=== PATIENT | female | born 1970 | race Caucasian/White ===

== ENCOUNTER 2024-05-12 11:50 | Inpatient (IN) | payer OTHER ==
[2024-05-12] MEDS ORDERED: ACETAMINOPHEN INJECTION 100 ML ONE (13:18)
[2024-05-12 13:26] LABS: BASO % 0.3 % (0-2.0); HEMATOCRIT 35.2 % (32.4-45.2); HEMOGLOBIN 11.9 GM/dL (10.7-15.3); LYMPH % 4.7 % (8-40); MCH 28.7 pg (25.7-33.7); MCHC 33.7 g/dl (32.0-36.0); MEAN CELL VOLUME 85.1 fl (80-96); MEAN PLT VOLUME 7.2 fl (7.5-11.1); MONO % 8.3 % (3.8-10.2); NEUT % 86.7 % (42.8-82.8); PLATELET COUNT 330 10^3/uL (134-434); RBC 4.14 M/mm3 (3.60-5.2); RDW 14.9 % (11.6-15.6); WHITE BLOOD COUNT 16.4 K/mm3 (4.0-10.0)
[2024-05-12] MEDS: SODIUM CHLORIDE 1,000 ML IV STA (13:26)
[2024-05-12] MEDS: ACETAMINOPHEN 1000 MG/100 ML BAG IVPB ONE (13:26)
[2024-05-12] MEDS: MINERAL OIL ENEMA 133 ML ENEMA RC ONE (13:27)
[2024-05-12 13:51] LABS: POTASSIUM 3.3 mmol/L (3.5-5.1)
[2024-05-12 13:53] LABS: ALBUMIN 3.4 g/dl (3.4-5.0); BLOOD UREA NITROGEN 28.6 mg/dL (7-18)
[2024-05-12 13:54] LABS: CALCIUM 9.1 mg/dL (8.5-10.1)
[2024-05-12 13:57] LABS: CREATININE 1.3 mg/dL (0.55-1.3)
[2024-05-12 13:58] LABS: BILIRUBIN,TOTAL 0.9 mg/dL (0.2-1)
[2024-05-12 13:59] LABS: TOT PROT 7.6 g/dl (6.4-8.2)
[2024-05-12 15:58] LABS: EPI CELLS 11 /uL (0-25.1); HYALINE CASTS 7 /uL (0-3.1); URINE APPEARANCE CLOUDY; URINE BACTERIA 10 /uL (0-1359); URINE BILIRUBIN NEGATIVE (NEGATIVE); URINE COLOR YELLOW; URINE GLUCOSE (UA) NEGATIVE (NEGATIVE); URINE KETONE NEGATIVE (NEGATIVE); URINE LEUK ESTERASE TRACE (NEGATIVE); URINE NITRITE NEGATIVE (NEGATIVE); URINE PROTEIN 1+ (NEGATIVE); URINE WBC 149 /uL (0-25.8)
[2024-05-12 16:55] LABS: URINE RBC 95.7 /uL (0-23.9)
[2024-05-12] MEDS: SODIUM PHOSPHATE/NA BIPHOS 133 ML ENEMA PR ONE ×2 (18:13→21:11)
[2024-05-12] MEDS: SODIUM CHLORIDE 0.9% 500 ML INFUS.BAG IV ONE ×2 (18:31→21:15)
[2024-05-12] MEDS: POTASSIUM CHLORIDE TABS 20 MEQ TABLET.ER (FP) PO ONE (21:12)
[2024-05-12] MEDS: MAGNESIUM SULF 50% (8.12 MEQ/2 ML-1 GM VIAL) IVPB ONE (21:16)
[2024-05-12] MEDS: KCL 10 MEQ IVPB 10 MEQ/100 ML INFUS.BAG IVPB SCH (21:16)
[2024-05-12] MEDS ORDERED: MAGNESIUM SULFATE IN WATER 2 GM/50 ML IVPB IVPB ONE (21:19)
[2024-05-12] MEDS ORDERED: KCL 10 MEQ IVPB 30 MEQ/300 ML INFUS.BAG IVPB ONE (21:19)
[2024-05-12] MEDS ORDERED: levETIRAcetam 500 MG/5 ML INJECTION VIAL IVPB SCH (22:45)
[2024-05-12] MEDS ORDERED: DEXTROSE 5%-0.45% SALINE 1,000 ML IV SCH (23:15)
[2024-05-12] MEDS: PIPERACILLIN/TAZOB 4.5 GM 4.5 GM in DEXTROSE 5%-WATER 100 ML IVPB ONE (23:59)
[2024-05-13] MEDS ORDERED: PIPERACILLIN/TAZOB 4.5 GM 4.5 GM/100 ML BAG IVPB ONE
[2024-05-13] MEDS: PATIENT'S OWN MEDICATION (NON-FORMULARY) (Brimonidine Tartrate/Timolol [Combigan 0.2%-0.5% OD SCH (00:15)
[2024-05-13] MEDS: BRIMONIDINE TARTRATE 0.2% OPHTHALMIC 5 ML BOTTLE OD SCH (02:55)
[2024-05-13] MEDS: TIMOLOL 0.5% OPHTHALMIC SOL 5 ML BOTTLE OD SCH (02:56)
[2024-05-13] MEDS: levETIRAcetam 500 MG/5 ML INJECTION VIAL IVPB SCH (03:25)
[2024-05-13] MEDS: SODIUM CHLORIDE 1,000 ML IV SCH (03:26)
[2024-05-13] MEDS: ACETAMINOPHEN 1000 MG/100 ML BAG IVPB PRN (04:13)
[2024-05-13 05:16] VITALS: BMI 30.7
[2024-05-13] MEDS: PIPERACILLIN/TAZOB 3.375 GM 50 ML IVPB SCH (09:31)
[2024-05-13 10:22] LABS: BASO % 0.1 % (0-2.0); EOS % 0.2 % (0-4.5); HEMATOCRIT 26.5 % (32.4-45.2); HEMOGLOBIN 9.1 GM/dL (10.7-15.3); LYMPH % 6.8 % (8-40); MCH 29.1 pg (25.7-33.7); MCHC 34.2 g/dl (32.0-36.0); MEAN CELL VOLUME 85.2 fl (80-96); MEAN PLT VOLUME 7.3 fl (7.5-11.1); MONO % 8.8 % (3.8-10.2); NEUT % 84.1 % (42.8-82.8); PLATELET COUNT 241 10^3/uL (134-434); RBC 3.11 M/mm3 (3.60-5.2); RDW 14.8 % (11.6-15.6); WHITE BLOOD COUNT 9.3 K/mm3 (4.0-10.0)
[2024-05-13 10:33] LABS: POTASSIUM 3.3 mmol/L (3.5-5.1)
[2024-05-13 10:44] LABS: BLOOD UREA NITROGEN 10.6 mg/dL (7-18)
[2024-05-13 10:46] LABS: MAGNESIUM 2.8 mg/dL (1.8-2.4)
[2024-05-13 10:48] LABS: CREATININE 0.6 mg/dL (0.55-1.3); PHOSPHOROUS 1.5 mg/dL (2.5-4.9)
[2024-05-13 10:49] LABS: BILIRUBIN,TOTAL 0.5 mg/dL (0.2-1)
[2024-05-13 11:32] LABS: ALBUMIN 2.4 g/dl (3.4-5.0); CALCIUM 7.5 mg/dL (8.5-10.1); TOT PROT 5.6 g/dl (6.4-8.2)
[2024-05-13] MEDS: POTASSIUM PHOSPHATE 30 MM in DEXTROSE 5%-WATER - 500 ML IVPB ONE (13:17)
[2024-05-13] MEDS: LEVOTHYROXINE NA 100 MCG TABLET (FP) PO SCH (16:37)
[2024-05-14] MEDS: TRIMETHOBENZAMIDE HCL 200MG/2ML INJ IM ONE (02:00)
[2024-05-14] MEDS: ACETAMINOPHEN 1000 MG/100 ML BAG IVPB ONE (05:13)
[2024-05-14] MEDS: SODIUM CHLORIDE 1,000 ML IV SCH (05:30)
[2024-05-14 09:23] LABS: HEMATOCRIT 31.6 % (32.4-45.2); HEMOGLOBIN 10.6 GM/dL (10.7-15.3); MCH 29.1 pg (25.7-33.7); MCHC 33.6 g/dl (32.0-36.0); MEAN CELL VOLUME 86.8 fl (80-96); MEAN PLT VOLUME 7.6 fl (7.5-11.1); PLATELET COUNT 319 10^3/uL (134-434); RBC 3.65 M/mm3 (3.60-5.2); WHITE BLOOD COUNT 11.9 K/mm3 (4.0-10.0)
[2024-05-14] MEDS: SODIUM CHLORIDE 1,000 ML IV STA (09:54)
[2024-05-14] MEDS: POTASSIUM CHLORIDE ORAL LIQUID 20 MEQ/15 ML PO ONE (09:54)
[2024-05-14 09:55] LABS: POTASSIUM 3.6 mmol/L (3.5-5.1)
[2024-05-14 10:19] LABS: CALCIUM 7.1 mg/dL (8.5-10.1)
[2024-05-14 10:20] LABS: MAGNESIUM 2.1 mg/dL (1.8-2.4)
[2024-05-14 10:23] LABS: CREATININE 0.6 mg/dL (0.55-1.3); PHOSPHOROUS 2.3 mg/dL (2.5-4.9)
[2024-05-14 10:24] LABS: INR 1.13 (0.83-1.09); PROTHROMBIN TIME (PATIENT) 12.3 SEC (9.7-13.0)
[2024-05-14 10:24] LABS: BILIRUBIN,TOTAL 0.4 mg/dL (0.2-1); TOT PROT 4.8 g/dl (6.4-8.2)
[2024-05-14] MEDS ORDERED: FENTANYL CITRATE/PF 50 MCG/ML VIAL ONE (10:41)
[2024-05-14] MEDS ORDERED: ACETAMINOPHEN 1000 MG/100 ML BAG IVPB PRN ×2 (11:00)
[2024-05-14] MEDS: SODIUM CHLORIDE 250 ML IV ONE (11:15)
[2024-05-14] MEDS: FENTANYL CITRATE/PF 50 MCG/ML VIAL IVPUSH ONE ×2 (11:22→11:33)
[2024-05-14] MEDS: NAPH,MB-DB/K PH,MBDB POWDER PACKET PO SCH (12:15)
[2024-05-14] MEDS: ACETAMINOPHEN 1000 MG/100 ML BAG IVPB SCH (17:25)
[2024-05-14] MEDS: KETOROLAC TROMETHAMINE 30 MG/1 ML VIAL IVPUSH SCH (19:30)
[2024-05-15] MEDS ORDERED: PIPERACILLIN/TAZOB 3.375 GM 50 ML IVPB SCH (09:00)
[2024-05-15 09:56] LABS: HEMATOCRIT 31.2 % (32.4-45.2); HEMOGLOBIN 10.4 GM/dL (10.7-15.3); MCH 28.9 pg (25.7-33.7); MCHC 33.5 g/dl (32.0-36.0); MEAN CELL VOLUME 86.4 fl (80-96); MEAN PLT VOLUME 7.2 fl (7.5-11.1); PLATELET COUNT 367 10^3/uL (134-434); RBC 3.61 M/mm3 (3.60-5.2); RDW 14.9 % (11.6-15.6); WHITE BLOOD COUNT 12.8 K/mm3 (4.0-10.0)
[2024-05-15] MEDS: TRIMETHOBENZAMIDE HCL 200MG/2ML INJ IM PRN (10:43)
[2024-05-15 10:50] LABS: POTASSIUM 3.3 mmol/L (3.5-5.1)
[2024-05-15 10:54] LABS: ALBUMIN 1.9 g/dl (3.4-5.0); CALCIUM 7.6 mg/dL (8.5-10.1)
[2024-05-15 10:55] LABS: BLOOD UREA NITROGEN 6.4 mg/dL (7-18)
[2024-05-15 10:58] LABS: CREATININE 0.6 mg/dL (0.55-1.3); PHOSPHOROUS 2.7 mg/dL (2.5-4.9)
[2024-05-15 10:59] LABS: BILIRUBIN,TOTAL 0.5 mg/dL (0.2-1); TOT PROT 4.9 g/dl (6.4-8.2)
[2024-05-15] MEDS: PIPERACILLIN/TAZOB 4.5 GM 4.5 GM/100 ML BAG IVPB SCH (15:27)
[2024-05-15] MEDS: DEXTROSE 5%-0.45% SALINE 1,000 ML IV SCH (17:20)
[2024-05-15] MEDS: KCL 10 MEQ IVPB 10 MEQ/100 ML INFUS.BAG IVPB SCH (19:51)
[2024-05-16 09:37] LABS: HEMATOCRIT 35.6 % (32.4-45.2); HEMOGLOBIN 11.7 GM/dL (10.7-15.3); MCH 28.3 pg (25.7-33.7); MCHC 32.7 g/dl (32.0-36.0); MEAN CELL VOLUME 86.6 fl (80-96); MEAN PLT VOLUME 7.1 fl (7.5-11.1); PLATELET COUNT 473 10^3/uL (134-434); RBC 4.11 M/mm3 (3.60-5.2); RDW 15.3 % (11.6-15.6); WHITE BLOOD COUNT 14.3 K/mm3 (4.0-10.0)
[2024-05-16 09:51] LABS: POTASSIUM 3.4 mmol/L (3.5-5.1)
[2024-05-16] MEDS: ENOXAPARIN NA (PORCINE) 40 MG/0.4 ML DISP.SYRIN SQ SCH (09:51)
[2024-05-16 09:55] LABS: CALCIUM 8.1 mg/dL (8.5-10.1)
[2024-05-16 09:57] LABS: BLOOD UREA NITROGEN 8.5 mg/dL (7-18)
[2024-05-16 09:59] LABS: CREATININE 0.6 mg/dL (0.55-1.3)
[2024-05-16] MEDS: KCL 10 MEQ IVPB 10 MEQ/100 ML INFUS.BAG IVPB SCH (10:41)
[2024-05-16] MEDS: IOHEXOL (OMNIPAQUE IV) 350 MG/ML - 100 ML BOTTLE PO ONE (12:31)
[2024-05-16 13:11] LABS: HEMATOCRIT 32.7 % (32.4-45.2); HEMOGLOBIN 10.9 GM/dL (10.7-15.3); MCH 28.5 pg (25.7-33.7); MCHC 33.3 g/dl (32.0-36.0); MEAN CELL VOLUME 85.6 fl (80-96); MEAN PLT VOLUME 7.1 fl (7.5-11.1); PLATELET COUNT 495 10^3/uL (134-434); RBC 3.82 M/mm3 (3.60-5.2); RDW 14.9 % (11.6-15.6); WHITE BLOOD COUNT 12.1 K/mm3 (4.0-10.0)
[2024-05-16 13:59] LABS: ANISOCYTOSIS 0; MACROCYTOSIS 0
[2024-05-17 08:31] LABS: ARTERIAL BLOOD GAS BASE EXCESS 2.6 mmol/L (-2-2); ARTERIAL BLOOD GAS PO2 74.9 mmHg (80-100); ARTERIAL BLOOD GAS pH 7.478 (7.350-7.450)
[2024-05-17 08:36] LABS: ALLENS TEST POSITIVE
[2024-05-17 08:50] LABS: BASO % 0.4 % (0-2.0); EOS % 1.5 % (0-4.5); HEMATOCRIT 32.4 % (32.4-45.2); HEMOGLOBIN 10.6 GM/dL (10.7-15.3); LYMPH % 8.3 % (8-40); MCH 28.3 pg (25.7-33.7); MCHC 32.8 g/dl (32.0-36.0); MEAN CELL VOLUME 86.4 fl (80-96); MEAN PLT VOLUME 7.1 fl (7.5-11.1); MONO % 6.3 % (3.8-10.2); NEUT % 83.5 % (42.8-82.8); PLATELET COUNT 510 10^3/uL (134-434); RBC 3.75 M/mm3 (3.60-5.2); RDW 15.4 % (11.6-15.6); WHITE BLOOD COUNT 12.3 K/mm3 (4.0-10.0)
[2024-05-17 09:14] LABS: BLOOD UREA NITROGEN 8.6 mg/dL (7-18); MAGNESIUM 2.1 mg/dL (1.8-2.4); POTASSIUM 3.3 mmol/L (3.5-5.1)
[2024-05-17 09:17] LABS: CREATININE 0.6 mg/dL (0.55-1.3)
[2024-05-17 09:18] LABS: CALCIUM 8.1 mg/dL (8.5-10.1); PHOSPHOROUS 1.9 mg/dL (2.5-4.9)
[2024-05-17] MEDS ORDERED: KCL 10 MEQ IVPB 10 MEQ/100 ML INFUS.BAG IVPB SCH (10:30)
[2024-05-17] MEDS: KCL 10 MEQ IVPB 10 MEQ/100 ML INFUS.BAG IVPB SCH (12:40)
[2024-05-17] MEDS ORDERED: ACETAMINOPHEN 1000 MG/100 ML BAG IVPB PRN (13:15)
[2024-05-17] MEDS: IOHEXOL (OMNIPAQUE IV) 350 MG/ML - 100 ML BOTTLE PO ONE (14:45)
[2024-05-17] MEDS: DEXTROSE 5%-0.45% SALINE 1,000 ML IV SCH (18:12)
[2024-05-17] MEDS: AMINO ACIDS 4.25%/D5W 1,000 ML IV SCH (18:29)
[2024-05-17] MEDS: POTASSIUM PHOSPHATE 30 MM in SODIUM CHLORIDE 500 ML IVPB ONE (20:42)
[2024-05-17] MEDS: levETIRAcetam 500 MG/5 ML INJECTION VIAL IVPB SCH (21:37)
[2024-05-18 09:56] LABS: HEMATOCRIT 28.7 % (32.4-45.2); MCH 29.5 pg (25.7-33.7); MCHC 34.7 g/dl (32.0-36.0); MEAN PLT VOLUME 6.9 fl (7.5-11.1); PLATELET COUNT 428 10^3/uL (134-434); RBC 3.38 M/mm3 (3.60-5.2); WHITE BLOOD COUNT 7.5 K/mm3 (4.0-10.0)
[2024-05-18 10:26] LABS: MAGNESIUM 1.7 mg/dL (1.8-2.4); POTASSIUM 3.3 mmol/L (3.5-5.1)
[2024-05-18 10:29] LABS: PHOSPHOROUS 2.8 mg/dL (2.5-4.9)
[2024-05-18 10:33] LABS: ALBUMIN 1.8 g/dl (3.4-5.0); BLOOD UREA NITROGEN 6.9 mg/dL (7-18)
[2024-05-18 10:34] LABS: BILIRUBIN,TOTAL 0.3 mg/dL (0.2-1); TOT PROT 5.2 g/dl (6.4-8.2)
[2024-05-18 10:36] LABS: CREATININE 0.4 mg/dL (0.55-1.3)
[2024-05-18 10:38] LABS: CALCIUM 7.6 mg/dL (8.5-10.1)
[2024-05-18 10:40] LABS: ANISOCYTOSIS 0; MACROCYTOSIS 0
[2024-05-18] MEDS: KCL 10 MEQ IVPB 10 MEQ/100 ML INFUS.BAG IVPB SCH (10:58)
[2024-05-18] MEDS: MAGNESIUM 2GM/50ML STERILE WATER IVPB IVPB ONE (11:29)
[2024-05-18] MEDS ORDERED: PROPOFOL 20 ML ONE (13:33)
[2024-05-18] MEDS ORDERED: MIDAZOLAM HCL 2 MG/2 ML SINGLE DOSE VIAL ONE (13:34)
[2024-05-18] MEDS ORDERED: DEXAMETHASONE SOD PHOSPHATE 4 MG/1 ML VIAL ONE (13:35)
[2024-05-18] MEDS ORDERED: GLYCOPYRROLATE 0.2 MG/1 ML VIAL ONE ×2 (13:35→17:59)
[2024-05-18] MEDS ORDERED: LIDOCAINE HCL/PF 2% SDV 5ML VIAL ONE (13:35)
[2024-05-18] MEDS ORDERED: ONDANSETRON 4 MG/2 ML VIAL ONE ×2 (13:35→18:00)
[2024-05-18] MEDS ORDERED: SUCCINYLCHOLINE CHLORIDE 200 MG/10 ML SYRINGE ONE (13:36)
[2024-05-18] MEDS ORDERED: ALBUTEROL SO4 HFA INHALER IH ONE (14:42)
[2024-05-18] MEDS ORDERED: ROCURONIUM BROMIDE 50 MG/5 ML SYRINGE ONE (14:42)
[2024-05-18] MEDS ORDERED: ALBUMIN HUMAN 5% 500 ML IV SOLUTION IV SCH (14:45)
[2024-05-18] MEDS ORDERED: BUPIVACAINE HCL/PF 0.25% (2.5MG/ML) 10 ML VIAL ONE (14:47)
[2024-05-18] MEDS ORDERED: CEFOXITIN SODIUM 1 GM IVPB ONE (14:48)
[2024-05-18] MEDS ORDERED: cefOXitin SODIUM 2 GM VIAL (RESTRICTED TO ID) IVPB ONE (14:48)
[2024-05-18] MEDS ORDERED: NOREPINEPHRINE BITARTRATE 4 MG/4 ML ML IV ONE (15:31)
[2024-05-18] MEDS ORDERED: NEOSTIGMINE METHYLSULFATE 0.5 MG/1 ML - 10 ML MDV ONE (17:59)
[2024-05-18] MEDS: BUPIVACAINE HCL/PF 0.25% (2.5MG/ML) 10 ML VIAL IJ ONE (18:00)
[2024-05-18] MEDS ORDERED: ONDANSETRON 4 MG/2 ML VIAL IVPUSH PRN ×2 (18:35→19:27)
[2024-05-18] MEDS ORDERED: HYDROmorphone HCl 2 MG/ML VIAL IVPB PRN (19:27)
[2024-05-18] MEDS ORDERED: KETOROLAC TROMETHAMINE 15 MG/ML VIAL IVPUSH PRN (19:27)
[2024-05-18] MEDS: ACETAMINOPHEN 1000 MG/100 ML BAG IVPB SCH (19:51)
[2024-05-18] MEDS: LACTATED RINGERS SOLUTION 1,000 ML IV SCH (19:56)
[2024-05-18] MEDS: MAGNESIUM SULF 50% (8.12 MEQ/2 ML-1 GM VIAL) IVPB ONE (20:01)
[2024-05-18] MEDS ORDERED: HYDROmorphone HCL CARPU-JECT 2 MG/1 ML DISP.SYRIN IVPB PRN (20:28)
[2024-05-18] MEDS: DEXTROSE 5%-0.45% SALINE 1,000 ML IV SCH (20:59)
[2024-05-18] MEDS: levETIRAcetam 500 MG/5 ML INJECTION VIAL IVPB SCH (21:30)
[2024-05-18] MEDS ORDERED: FAT EMULSION/OLIVE/SOY (CLINOLIPID) 250 ML EMULSION IV SCH (22:00)
[2024-05-18] MEDS: SODIUM CHLORIDE 1,000 ML IV SCH (22:20)
[2024-05-18] MEDS: FAT EMULSION/OLIVE/SOY (CLINOLIPID) 250 ML EMULSION IV SCH (22:22)
[2024-05-18] MEDS: TIMOLOL 0.5% OPHTHALMIC SOL 5 ML BOTTLE OD SCH (22:27)
[2024-05-18] MEDS: BRIMONIDINE TARTRATE 0.2% OPHTHALMIC 5 ML BOTTLE OD SCH (22:27)
[2024-05-18] MEDS: NAPH,MB-DB/K PH,MBDB POWDER PACKET PO SCH (22:27)
[2024-05-18] MEDS: FAT EMULSION/OLIVE/SOY/PHOSPHO 250 ML IV SCH (22:32)
[2024-05-19] MEDS: AMINO ACIDS 4.25%/D5W 1,000 ML IV SCH ×3 (00:20→22:20)
[2024-05-19] MEDS: MAGNESIUM SULF 50% (8.12 MEQ/2 ML-1 GM VIAL) IVPB ONE (00:20)
[2024-05-19] MEDS: LACTATED RINGERS SOLUTION 1,000 ML IV SCH (00:21)
[2024-05-19] MEDS: DEXTROSE 5%-0.45% SALINE 1,000 ML IV SCH (00:21)
[2024-05-19] MEDS: KCL 10 MEQ IVPB 10 MEQ/100 ML INFUS.BAG IVPB SCH ×2 (00:21)
[2024-05-19] MEDS: SODIUM CHLORIDE 0.9% 500 ML INFUS.BAG IV STA (00:54)
[2024-05-19] MEDS: PIPERACILLIN/TAZOB 4.5 GM 4.5 GM/100 ML BAG IVPB SCH (02:46)
[2024-05-19] MEDS ORDERED: LEVOTHYROXINE NA 100 MCG TABLET (FP) PO SCH (07:00)
[2024-05-19 07:25] LABS: HEMOGLOBIN 8.4 GM/dL (10.7-15.3); MCH 29.1 pg (25.7-33.7); MCHC 33.5 g/dl (32.0-36.0); MEAN PLT VOLUME 7.2 fl (7.5-11.1); PLATELET COUNT 399 10^3/uL (134-434); RBC 2.88 M/mm3 (3.60-5.2); RDW 14.9 % (11.6-15.6); WHITE BLOOD COUNT 17.5 K/mm3 (4.0-10.0)
[2024-05-19 07:33] LABS: POTASSIUM 3.5 mmol/L (3.5-5.1)
[2024-05-19 07:49] LABS: CALCIUM 7.4 mg/dL (8.5-10.1)
[2024-05-19 07:52] LABS: CREATININE 0.4 mg/dL (0.55-1.3); PHOSPHOROUS 3.2 mg/dL (2.5-4.9)
[2024-05-19 07:54] LABS: BILIRUBIN,TOTAL 0.3 mg/dL (0.2-1); TOT PROT 4.6 g/dl (6.4-8.2)
[2024-05-19] MEDS: PANTOPRAZOLE SODIUM 40 MG VIAL IVPUSH SCH (09:27)
[2024-05-19] MEDS ORDERED: AMINO ACIDS 4.25%/D5W 1,000 ML IV SCH (10:38)
[2024-05-19] MEDS: LEVOTHYROXINE SODIUM 100 MCG 5 ML VIAL IVPUSH SCH (10:50)
[2024-05-19 19:24] LABS: POTASSIUM 3.7 mmol/L (3.5-5.1)
[2024-05-19 19:26] LABS: CALCIUM 7.8 mg/dL (8.5-10.1)
[2024-05-19 19:27] LABS: BLOOD UREA NITROGEN 9.1 mg/dL (7-18)
[2024-05-19 19:30] LABS: CREATININE 0.6 mg/dL (0.55-1.3)
[2024-05-19 19:32] LABS: TOT PROT 5.2 g/dl (6.4-8.2)
[2024-05-19 20:41] LABS: HEMATOCRIT 32.8 % (32.4-45.2); HEMOGLOBIN 10.8 GM/dL (10.7-15.3); MCH 28.3 pg (25.7-33.7); MCHC 32.9 g/dl (32.0-36.0); MEAN PLT VOLUME 7.1 fl (7.5-11.1); PLATELET COUNT 431 10^3/uL (134-434); RBC 3.81 M/mm3 (3.60-5.2); RDW 14.1 % (11.6-15.6); WHITE BLOOD COUNT 20.4 K/mm3 (4.0-10.0)
[2024-05-19 21:47] LABS: ANISOCYTOSIS 1+; MACROCYTOSIS 1+
[2024-05-20 07:37] LABS: CHLORIDE 104 mmol/L (98-107); SODIUM 140 mmol/L (136-145)
[2024-05-20 07:38] LABS: HEMATOCRIT 30.8 % (32.4-45.2); HEMOGLOBIN 10.4 GM/dL (10.7-15.3); MCH 28.8 pg (25.7-33.7); MCHC 33.8 g/dl (32.0-36.0); MEAN CELL VOLUME 85.2 fl (80-96); MEAN PLT VOLUME 6.9 fl (7.5-11.1); PLATELET COUNT 430 10^3/uL (134-434); RBC 3.62 M/mm3 (3.60-5.2); RDW 14.2 % (11.6-15.6); WHITE BLOOD COUNT 20.9 K/mm3 (4.0-10.0)
[2024-05-20 07:42] LABS: ALBUMIN 1.7 g/dl (3.4-5.0); BLOOD UREA NITROGEN 8.6 mg/dL (7-18); CO2 30 mmol/L (21-32); CREATININE 0.4 mg/dL (0.55-1.3); GLUCOSE,RANDOM 113 mg/dL (74-106); SGPT/ALT 10 U/L (13-61)
[2024-05-20 07:43] LABS: MAGNESIUM 1.7 mg/dL (1.8-2.4)
[2024-05-20 07:44] LABS: BILIRUBIN,TOTAL 0.3 mg/dL (0.2-1); TOT PROT 4.5 g/dl (6.4-8.2)
[2024-05-20 07:45] LABS: ALK PHOS 45 U/L (45-117); SGOT/AST 18 U/L (15-37)
[2024-05-20 08:02] LABS: ANION GAP 5 mmol/L (4-13); POTASSIUM 2.9 mmol/L (3.5-5.1)
[2024-05-20] MEDS: MAGNESIUM SULFATE IN WATER 2 GM/50 ML IVPB IVPB ONE (08:23)
[2024-05-20] MEDS: KCL 10 MEQ IVPB 10 MEQ/100 ML INFUS.BAG IVPB SCH (09:33)
[2024-05-20 10:56] LABS: ANISOCYTOSIS 0; MACROCYTOSIS 0
[2024-05-20] MEDS: IOHEXOL (OMNIPAQUE IV) 350 MG/ML - 100 ML BOTTLE GT ONE (11:24)
[2024-05-21 07:35] LABS: HEMATOCRIT 32.3 % (32.4-45.2); HEMOGLOBIN 10.8 GM/dL (10.7-15.3); MCH 28.8 pg (25.7-33.7); MCHC 33.3 g/dl (32.0-36.0); MEAN CELL VOLUME 86.5 fl (80-96); MEAN PLT VOLUME 7.1 fl (7.5-11.1); PLATELET COUNT 455 10^3/uL (134-434); RBC 3.74 M/mm3 (3.60-5.2); RDW 14.3 % (11.6-15.6); WHITE BLOOD COUNT 21.7 K/mm3 (4.0-10.0)
[2024-05-21 07:39] LABS: CALCIUM 7.6 mg/dL (8.5-10.1)
[2024-05-21 07:40] LABS: ALBUMIN 1.7 g/dl (3.4-5.0); BLOOD UREA NITROGEN 9.7 mg/dL (7-18); MAGNESIUM 1.8 mg/dL (1.8-2.4)
[2024-05-21 07:43] LABS: CREATININE 0.4 mg/dL (0.55-1.3)
[2024-05-21 07:44] LABS: TOT PROT 4.9 g/dl (6.4-8.2)
[2024-05-21 07:45] LABS: BILIRUBIN,TOTAL 0.5 mg/dL (0.2-1)
[2024-05-21] MEDS: KCL 10 MEQ IVPB 10 MEQ/100 ML INFUS.BAG IVPB SCH ×2 (10:00→22:47)
[2024-05-21 11:11] LABS: ANISOCYTOSIS 0; MACROCYTOSIS 0
[2024-05-21] MEDS: ENOXAPARIN NA (PORCINE) 40 MG/0.4 ML DISP.SYRIN SQ SCH (13:49)
[2024-05-21] MEDS: MAGNESIUM 2GM/50ML STERILE WATER IVPB IVPB ONE (13:49)
[2024-05-21] MEDS ORDERED: ACETAMINOPHEN 1000 MG/100 ML BAG IVPB PRN (13:54)
[2024-05-21] MEDS: PIPERACILLIN/TAZOB 4.5 GM 4.5 GM/100 ML BAG IVPB SCH (19:03)
[2024-05-21] MEDS: POTASSIUM CHLORIDE 20 MEQ in AMINO ACIDS 4.25%/D5W 1,000 ML IV SCH (20:12)
[2024-05-21] MEDS: BRIMONIDINE TARTRATE 0.2% OPHTHALMIC 5 ML BOTTLE OD SCH (21:14)
[2024-05-21] MEDS: TIMOLOL 0.5% OPHTHALMIC SOL 5 ML BOTTLE OD SCH (21:15)
[2024-05-21] MEDS: levETIRAcetam 500 MG/5 ML INJECTION VIAL IVPB SCH (21:43)
[2024-05-22] MEDS: HYDROmorphone HCL CARPU-JECT 2 MG/1 ML DISP.SYRIN IVPB PRN (03:21)
[2024-05-22 07:53] LABS: HEMATOCRIT 33.4 % (32.4-45.2); HEMOGLOBIN 11.3 GM/dL (10.7-15.3); MCH 29.4 pg (25.7-33.7); MEAN CELL VOLUME 86.6 fl (80-96); PLATELET COUNT 540 10^3/uL (134-434); RBC 3.86 M/mm3 (3.60-5.2); RDW 14.6 % (11.6-15.6); WHITE BLOOD COUNT 17.3 K/mm3 (4.0-10.0)
[2024-05-22 08:01] LABS: POTASSIUM 3.6 mmol/L (3.5-5.1)
[2024-05-22 08:14] LABS: BILIRUBIN,TOTAL 0.5 mg/dL (0.2-1)
[2024-05-22 08:16] LABS: CREATININE 0.4 mg/dL (0.55-1.3)
[2024-05-22 08:17] LABS: PHOSPHOROUS 1.6 mg/dL (2.5-4.9)
[2024-05-22 08:18] LABS: ALBUMIN 1.7 g/dl (3.4-5.0)
[2024-05-22 08:21] LABS: BLOOD UREA NITROGEN 6.8 mg/dL (7-18)
[2024-05-22] MEDS ORDERED: PANTOPRAZOLE SODIUM 40 MG VIAL IVPUSH SCH (10:00)
[2024-05-22] MEDS: ENOXAPARIN NA (PORCINE) 40 MG/0.4 ML DISP.SYRIN SQ SCH (11:15)
[2024-05-22] MEDS: LEVOTHYROXINE SODIUM 100 MCG 5 ML VIAL IVPUSH SCH (11:16)
[2024-05-22] MEDS: AMINO ACIDS 4.25%/D5W 1,000 ML IV SCH (11:17)
[2024-05-22] MEDS: KCL 10 MEQ IVPB 10 MEQ/100 ML INFUS.BAG IVPB SCH (11:18)
[2024-05-22] MEDS: ALBUMIN HUMAN 5% 500 ML IV SOLUTION IV ONE (11:33)
[2024-05-22 11:47] LABS: ANISOCYTOSIS 0; HELMET CELLS 0; HOWELL-JOLLY BODIES 0; MACROCYTOSIS 0; OVALOCYTE 0; ROULEAU 0; SICKELED CELLS 0; TARGET CELLS 0; TEAR DROP CELLS 0; TOXIC GRANULATION 0
[2024-05-22] MEDS: SODIUM CHLORIDE 1,000 ML IV SCH ×2 (13:57→18:44)
[2024-05-22] MEDS: ACETAMINOPHEN 1000 MG/100 ML BAG IVPB PRN (15:55)
[2024-05-22] MEDS: POTASSIUM PHOSPHATE 30 MM in SODIUM CHLORIDE 500 ML IVPB ONE (15:56)
[2024-05-23 08:57] LABS: BASO % 0.1 % (0-2.0); EOS % 0.4 % (0-4.5); HEMATOCRIT 28.9 % (32.4-45.2); HEMOGLOBIN 9.8 GM/dL (10.7-15.3); LYMPH % 4.1 % (8-40); MCH 28.6 pg (25.7-33.7); MCHC 33.8 g/dl (32.0-36.0); MEAN CELL VOLUME 84.6 fl (80-96); MEAN PLT VOLUME 7.1 fl (7.5-11.1); MONO % 5.2 % (3.8-10.2); NEUT % 90.2 % (42.8-82.8); PLATELET COUNT 510 10^3/uL (134-434); RBC 3.41 M/mm3 (3.60-5.2); RDW 14.7 % (11.6-15.6); WHITE BLOOD COUNT 16.3 K/mm3 (4.0-10.0)
[2024-05-23 09:17] LABS: POTASSIUM 3.5 mmol/L (3.5-5.1)
[2024-05-23 09:19] LABS: CALCIUM 7.5 mg/dL (8.5-10.1)
[2024-05-23 09:20] LABS: ALBUMIN 1.4 g/dl (3.4-5.0); MAGNESIUM 1.6 mg/dL (1.8-2.4)
[2024-05-23 09:22] LABS: CREATININE 0.3 mg/dL (0.55-1.3)
[2024-05-23 09:24] LABS: BILIRUBIN,TOTAL 0.4 mg/dL (0.2-1); TOT PROT 4.5 g/dl (6.4-8.2)
[2024-05-23] MEDS: MAGNESIUM OXIDE 400 MG TABLET (FP) PO ONE (11:02)
[2024-05-23] MEDS: MULTIVITAMINS (DAILY MVI) TABLET (FP) PO SCH (11:06)
[2024-05-23] MEDS: LEVOTHYROXINE NA 100 MCG TABLET (FP) PO SCH (12:20)
[2024-05-23] MEDS: POTASSIUM PHOSPHATE 30 MM in SODIUM CHLORIDE 500 ML IVPB ONE (14:53)
[2024-05-23] MEDS: MAGNESIUM 2GM/50ML STERILE WATER IVPB IVPB ONE (14:53)
[2024-05-23] MEDS: LACTOBACILLUS ACIDOPHILUS 1 TABLET PO SCH (18:47)
[2024-05-23 21:46] LABS: INR 1.21 (0.83-1.09); PROTHROMBIN TIME (PATIENT) 13.3 SEC (9.7-13.0)
[2024-05-24] MEDS: NAPH,MB-DB/K PH,MBDB POWDER PACKET PO SCH (01:37)
[2024-05-24] MEDS: SODIUM CHLORIDE 1,000 ML IV STA ×2 (04:23→08:11)
[2024-05-24 09:47] LABS: BASO % 0.2 % (0-2.0); EOS % 0.5 % (0-4.5); HEMOGLOBIN 8.7 GM/dL (10.7-15.3); MCH 28.9 pg (25.7-33.7); MCHC 33.4 g/dl (32.0-36.0); MEAN CELL VOLUME 86.6 fl (80-96); MEAN PLT VOLUME 7.2 fl (7.5-11.1); MONO % 5.8 % (3.8-10.2); NEUT % 89.5 % (42.8-82.8); PLATELET COUNT 507 10^3/uL (134-434); RBC 3.01 M/mm3 (3.60-5.2); RDW 14.6 % (11.6-15.6); WHITE BLOOD COUNT 15.9 K/mm3 (4.0-10.0)
[2024-05-24 10:13] LABS: POTASSIUM 3.5 mmol/L (3.5-5.1)
[2024-05-24 10:21] LABS: ALBUMIN 1.4 g/dl (3.4-5.0); BLOOD UREA NITROGEN 6.7 mg/dL (7-18); CALCIUM 7.2 mg/dL (8.5-10.1); CREATININE 0.4 mg/dL (0.55-1.3); PHOSPHOROUS 2.6 mg/dL (2.5-4.9)
[2024-05-24 10:22] LABS: BILIRUBIN,TOTAL 0.3 mg/dL (0.2-1); TOT PROT 4.3 g/dl (6.4-8.2)
[2024-05-24 20:43] LABS: EPI CELLS 1 /uL (0-25.1); HYALINE CASTS 0 /uL (0-3.1); URINE APPEARANCE CLEAR; URINE BACTERIA 1 /uL (0-1359); URINE BILIRUBIN NEGATIVE (NEGATIVE); URINE COLOR YELLOW; URINE GLUCOSE (UA) NEGATIVE (NEGATIVE); URINE KETONE NEGATIVE (NEGATIVE); URINE LEUK ESTERASE NEGATIVE (NEGATIVE); URINE NITRITE NEGATIVE (NEGATIVE); URINE PROTEIN NEGATIVE (NEGATIVE); URINE RBC 100 /uL (0-23.9); URINE UROBILINOGEN 0.2 mg/dL (0.2-1.0); URINE WBC 3 /uL (0-25.8)
[2024-05-24] MEDS: POTASSIUM CHLORIDE TABS 20 MEQ TABLET.ER (FP) PO SCH (22:02)
[2024-05-25 08:38] LABS: INR 1.17 (0.83-1.09); PROTHROMBIN TIME (PATIENT) 12.9 SEC (9.7-13.0)
[2024-05-25 08:44] LABS: BASO % 0.3 % (0-2.0); EOS % 0.5 % (0-4.5); HEMATOCRIT 29.9 % (32.4-45.2); HEMOGLOBIN 9.9 GM/dL (10.7-15.3); LYMPH % 4.3 % (8-40); MCH 28.5 pg (25.7-33.7); MCHC 33.1 g/dl (32.0-36.0); MEAN PLT VOLUME 7.1 fl (7.5-11.1); MONO % 5.3 % (3.8-10.2); NEUT % 89.6 % (42.8-82.8); PLATELET COUNT 652 10^3/uL (134-434); RBC 3.48 M/mm3 (3.60-5.2); RDW 14.5 % (11.6-15.6); WHITE BLOOD COUNT 17.1 K/mm3 (4.0-10.0)
[2024-05-25 08:48] LABS: POTASSIUM 3.3 mmol/L (3.5-5.1)
[2024-05-25 08:54] LABS: BLOOD UREA NITROGEN 4.9 mg/dL (7-18); CALCIUM 7.7 mg/dL (8.5-10.1)
[2024-05-25 08:55] LABS: ALBUMIN 1.6 g/dl (3.4-5.0); MAGNESIUM 1.7 mg/dL (1.8-2.4)
[2024-05-25 08:57] LABS: CREATININE 0.4 mg/dL (0.55-1.3); PHOSPHOROUS 2.4 mg/dL (2.5-4.9)
[2024-05-25 08:59] LABS: BILIRUBIN,TOTAL 0.3 mg/dL (0.2-1)
[2024-05-25] MEDS: MINERAL OIL/PET HY-PHL TOPICAL OINTMENT 454 GM JAR TP SCH (11:47)
[2024-05-25] MEDS: KCL 10 MEQ IVPB 10 MEQ/100 ML INFUS.BAG IVPB SCH (12:14)
[2024-05-25] MEDS: MAGNESIUM OXIDE 400 MG TABLET (FP) PO ONE (12:19)
[2024-05-25] MEDS: MAGNESIUM SULF 50% (8.12 MEQ/2 ML-1 GM VIAL) IVPB ONE ×2 (14:12→14:32)
[2024-05-25] MEDS ORDERED: MIDAZOLAM HCL 2 MG/2 ML SINGLE DOSE VIAL ONE (15:07)
[2024-05-25] MEDS ORDERED: FENTANYL CITRATE/PF 50 MCG/ML VIAL ONE (15:07)
[2024-05-25] MEDS: ACETAMINOPHEN 1000 MG/100 ML BAG IVPB PRN (18:02)
[2024-05-25] MEDS: POTASSIUM PHOSPHATE 15 MM in SODIUM CHLORIDE 250 ML IVPB ONE (18:26)
[2024-05-26 08:21] LABS: BASO % 0.3 % (0-2.0); EOS % 0.7 % (0-4.5); HEMOGLOBIN 8.3 GM/dL (10.7-15.3); LYMPH % 5.1 % (8-40); MCH 28.5 pg (25.7-33.7); MCHC 33.1 g/dl (32.0-36.0); MEAN CELL VOLUME 86.1 fl (80-96); MEAN PLT VOLUME 6.8 fl (7.5-11.1); MONO % 6.7 % (3.8-10.2); NEUT % 87.2 % (42.8-82.8); PLATELET COUNT 634 10^3/uL (134-434); RDW 14.6 % (11.6-15.6); WHITE BLOOD COUNT 14.5 K/mm3 (4.0-10.0)
[2024-05-26 08:42] LABS: POTASSIUM 3.5 mmol/L (3.5-5.1)
[2024-05-26 08:56] LABS: ALBUMIN 1.4 g/dl (3.4-5.0); BLOOD UREA NITROGEN 6.2 mg/dL (7-18); CALCIUM 7.4 mg/dL (8.5-10.1)
[2024-05-26 08:57] LABS: CREATININE 0.3 mg/dL (0.55-1.3); PHOSPHOROUS 2.8 mg/dL (2.5-4.9)
[2024-05-26 08:58] LABS: BILIRUBIN,TOTAL 0.4 mg/dL (0.2-1)
[2024-05-26 08:59] LABS: TOT PROT 4.4 g/dl (6.4-8.2)
[2024-05-27 08:40] LABS: BASO % 0.4 % (0-2.0); EOS % 1.1 % (0-4.5); HEMATOCRIT 26.3 % (32.4-45.2); HEMOGLOBIN 8.9 GM/dL (10.7-15.3); LYMPH % 8.9 % (8-40); MCH 28.6 pg (25.7-33.7); MCHC 33.8 g/dl (32.0-36.0); MEAN CELL VOLUME 84.6 fl (80-96); MEAN PLT VOLUME 6.8 fl (7.5-11.1); MONO % 7.7 % (3.8-10.2); NEUT % 81.9 % (42.8-82.8); PLATELET COUNT 703 10^3/uL (134-434); RDW 14.5 % (11.6-15.6); WHITE BLOOD COUNT 11.2 K/mm3 (4.0-10.0)
[2024-05-27 09:07] LABS: CALCIUM 7.9 mg/dL (8.5-10.1); CREATININE 0.3 mg/dL (0.55-1.3); PHOSPHOROUS 2.6 mg/dL (2.5-4.9)
[2024-05-27 09:08] LABS: ALBUMIN 1.6 g/dl (3.4-5.0)
[2024-05-27 09:09] LABS: TOT PROT 4.7 g/dl (6.4-8.2)
[2024-05-27 09:13] LABS: BLOOD UREA NITROGEN 7.6 mg/dL (7-18)
[2024-05-27 09:20] LABS: BILIRUBIN,TOTAL 0.2 mg/dL (0.2-1)
[2024-05-27] MEDS: SODIUM CHLORIDE 1,000 ML IV SCH (17:15)
[2024-05-28 11:07] LABS: HEMATOCRIT 27.4 % (32.4-45.2); HEMOGLOBIN 9.3 GM/dL (10.7-15.3); MCH 28.5 pg (25.7-33.7); MCHC 33.8 g/dl (32.0-36.0); MEAN CELL VOLUME 84.3 fl (80-96); MEAN PLT VOLUME 6.9 fl (7.5-11.1); PLATELET COUNT 783 10^3/uL (134-434); RBC 3.26 M/mm3 (3.60-5.2); RDW 14.4 % (11.6-15.6); WHITE BLOOD COUNT 9.9 K/mm3 (4.0-10.0)
[2024-05-28 11:33] LABS: POTASSIUM 4.2 mmol/L (3.5-5.1)
[2024-05-28 11:49] LABS: CALCIUM 8.2 mg/dL (8.5-10.1)
[2024-05-28 11:51] LABS: ALBUMIN 1.8 g/dl (3.4-5.0)
[2024-05-28 11:52] LABS: BILIRUBIN,TOTAL 0.5 mg/dL (0.2-1); BLOOD UREA NITROGEN 8.5 mg/dL (7-18); MAGNESIUM 1.7 mg/dL (1.8-2.4)
[2024-05-28 11:53] LABS: CREATININE 0.4 mg/dL (0.55-1.3); TOT PROT 5.2 g/dl (6.4-8.2)
[2024-05-28] MEDS: MAGNESIUM 2GM/50ML STERILE WATER IVPB IVPB ONE (16:59)
[2024-05-28] MEDS: levETIRAcetam 250 MG TABLET PO SCH (22:22)
[2024-05-29 08:49] LABS: HEMATOCRIT 30.1 % (32.4-45.2); HEMOGLOBIN 10.2 GM/dL (10.7-15.3); MCHC 33.9 g/dl (32.0-36.0); MEAN CELL VOLUME 85.6 fl (80-96); MEAN PLT VOLUME 6.9 fl (7.5-11.1); PLATELET COUNT 860 10^3/uL (134-434); RBC 3.52 M/mm3 (3.60-5.2); WHITE BLOOD COUNT 9.6 K/mm3 (4.0-10.0)
[2024-05-29 09:14] LABS: POTASSIUM 4.7 mmol/L (3.5-5.1)
[2024-05-29 09:18] LABS: CALCIUM 8.3 mg/dL (8.5-10.1)
[2024-05-29 09:19] LABS: ALBUMIN 1.9 g/dl (3.4-5.0); BLOOD UREA NITROGEN 11.1 mg/dL (7-18); MAGNESIUM 2.1 mg/dL (1.8-2.4)
[2024-05-29 09:22] LABS: CREATININE 0.4 mg/dL (0.55-1.3); PHOSPHOROUS 3.7 mg/dL (2.5-4.9)
[2024-05-29 09:23] LABS: BILIRUBIN,TOTAL 0.6 mg/dL (0.2-1); TOT PROT 5.4 g/dl (6.4-8.2)
[2024-05-29] MEDS: AMOX TR/POT CLAV 875MG/125MG TABLETS (FP) PO SCH (16:58)
[2024-05-30 09:49] LABS: POTASSIUM 4.7 mmol/L (3.5-5.1)
[2024-05-30 09:50] LABS: MAGNESIUM 2.1 mg/dL (1.8-2.4)
[2024-05-30 10:07] LABS: ALBUMIN 2.1 g/dl (3.4-5.0); CALCIUM 8.7 mg/dL (8.5-10.1)
[2024-05-30 10:10] LABS: CREATININE 0.4 mg/dL (0.55-1.3); PHOSPHOROUS 4.2 mg/dL (2.5-4.9)
[2024-05-30 10:12] LABS: BILIRUBIN,TOTAL 0.6 mg/dL (0.2-1); TOT PROT 5.8 g/dl (6.4-8.2)
[2024-05-30 22:03] VITALS: BP 93/64; PULSE 87; RESP 17; TEMP 98.3
== END 2024-05-30 23:00 | disposition home or self-care (01) | DRG 221 ==
LOC: JER 11:50 → INTOOBSV 21:19 → JERBED 21:19 → J6S 05-13 01:31 → OBSVTOIN 05-13 08:26 → JICU 05-18 20:27 → J7W 05-21 16:32 → J8W 05-21 21:16
PROVIDERS: ADMIT Internal Medicine; ATTEND Nurse Practitioner Acute Care
PROC: 02HV33Z Insertion of Infusion Device into Superior Vena Cava, Percutaneous Approach (ICD-10-PCS; 2024-05-13)
PROC: B518ZZA Fluoroscopy of Superior Vena Cava, Guidance (ICD-10-PCS; 2024-05-13)
PROC: 0DTJ4ZZ Resection of Appendix, Percutaneous Endoscopic Approach (ICD-10-PCS; 2024-05-18)
PROC: 0DBH4ZZ Excision of Cecum, Percutaneous Endoscopic Approach (ICD-10-PCS; 2024-05-18)
PROC: 0W9G30Z Drainage of Peritoneal Cavity with Drainage Device, Percutaneous Approach (ICD-10-PCS; 2024-05-18)
PROC: 0DQ Gastrointestinal System, Repair (ICD-10-PCS; 2024-05-18)
PROC: 30233N1 Transfusion of Nonautologous Red Blood Cells into Peripheral Vein, Percutaneous Approach (ICD-10-PCS; 2024-05-19)
PROC: 0W9J30Z Drainage of Pelvic Cavity with Drainage Device, Percutaneous Approach (ICD-10-PCS; 2024-05-22)
PROC: 0W9J3ZZ Drainage of Pelvic Cavity, Percutaneous Approach (ICD-10-PCS; principal; 2024-05-25)
DX: K35.33 Acute appendicitis with perforation, localized peritonitis, and gangrene, with abscess (principal); K56.600 Partial intestinal obstruction, unspecified as to cause; A41.89 Other specified sepsis; R65.20 Severe sepsis without septic shock; I69.354 Hemiplegia and hemiparesis following cerebral infarction affecting left non-dominant side; D43.2 Neoplasm of uncertain behavior of brain, unspecified; D62 Acute posthemorrhagic anemia; R10.11 Right upper quadrant pain; E05.90 Thyrotoxicosis, unspecified without thyrotoxic crisis or storm; K59.00 Constipation, unspecified; E87.6 Hypokalemia; G40.909 Epilepsy, unspecified, not intractable, without status epilepticus; H40.9 Unspecified glaucoma; E87.8 Other disorders of electrolyte and fluid balance, not elsewhere classified; K76.0 Fatty (change of) liver, not elsewhere classified; N20.0 Calculus of kidney; N36.1 Urethral diverticulum; H54.40 Blindness, one eye, unspecified eye; D75.839 Thrombocytosis, unspecified; E46 Unspecified protein-calorie malnutrition; Z68.30 Body mass index [BMI] 30.0-30.9, adult
CPT/HCPCS: 0241U-QW; 36415; 36430; 36569; 36600; 49406; 49407; 71045-TC-FY; 71260-TC; 72193-TC; 74018-TC-FY; 74177-TC; 74178-TC; 76705-TC; 80048; 80053; 80061; 81003; 82728; 82803; 83540; 83550; 83605; 83690; 83735; 84100; 84132; 84484; 85025; 85027; 85610; 86140; 86850; 86900; 86901; 86922; 87040; 87070; 87075; 87076; 87077; 87086; 87102; 87116; 87186; 87205; 87206; 87210; 87635; 88304-TC; 88307-TC; 93005; 93010; 93970-TC; 94010; 94760; 97116-GP; 97162-GP; 99285-25; G0378; J0131; P9058; Q9967

== ENCOUNTER 2024-06-05 17:42 | Observation (INO) | payer OTHER ==
[2024-06-05 18:36] VITALS: BMI 31.1
[2024-06-05 20:23] LABS: ABSOLUTE IMMATURE GRANULOCYTES 0.05 x10^3/uL (0.0-0.031); BASOPHILS # 0.04 x10^3/uL (0.01-0.08); EOSINOPHILS # 0.41 x10^3/uL (0.04-0.36); HEMOGLOBIN 7.9 g/dL (11.2-15.7); MCHC 31.6 g/dl (32.2-35.5); MEAN CELL VOLUME 87.4 fl (79.4-94.8); MEAN PLT VOLUME 8.6 fl (9.4-12.3); MONOCYTE # 0.56 x10^3/uL (0.24-0.86); MONOCYTE % 9.5 % (4.7-12.5); PLATELET COUNT 547 x10^3/uL (182-369); RDW 13.5 % (12.3-16.6)
[2024-06-05 20:31] LABS: INR 1.22 (0.83-1.09); PROTHROMBIN TIME (PATIENT) 13.3 SEC (9.7-13.0)
[2024-06-05 21:01] LABS: POTASSIUM 4.2 mmol/L (3.5-5.1)
[2024-06-05 21:03] LABS: CALCIUM 8.9 mg/dL (8.5-10.1)
[2024-06-05 21:04] LABS: ALBUMIN 2.3 g/dl (3.4-5.0); BLOOD UREA NITROGEN 5.2 mg/dL (7-18)
[2024-06-05 21:07] LABS: CREATININE 0.4 mg/dL (0.55-1.3)
[2024-06-05 21:08] LABS: BILIRUBIN,TOTAL 0.2 mg/dL (0.2-1); TOT PROT 6.2 g/dl (6.4-8.2)
[2024-06-06] MEDS ORDERED: PIPERACILLIN/TAZOB 4.5 GM 4.5 GM/100 ML BAG IVPB ONE (03:16)
[2024-06-06] MEDS ORDERED: VANCOMYCIN 1 GM PREMIX (F) 1 GM/200 ML BAG ONE (03:16)
[2024-06-06] MEDS: PIPERACILLIN/TAZOB 4.5 GM 4.5 GM in DEXTROSE 5%-WATER 100 ML IVPB ONE (03:17)
[2024-06-06] MEDS: VANCOMYCIN 1,000 MG in DEXTROSE 5%-WATER - 250 ML IVPB ONE (03:45)
[2024-06-06] MEDS: SODIUM CHLORIDE 1,000 ML IV SCH ×2 (06:14→21:19)
[2024-06-06] MEDS ORDERED: LEVOTHYROXINE NA 100 MCG TABLET (FP) ONE (07:32)
[2024-06-06] MEDS: LEVOTHYROXINE NA 100 MCG TABLET (FP) PO SCH (07:32)
[2024-06-06] MEDS ORDERED: PIPERACILLIN/TAZOB 2.25 GM 2.25 GM in DEXTROSE 5%-WATER - 50 ML IVPB SCH (09:00)
[2024-06-06 10:28] LABS: ABSOLUTE IMMATURE GRANULOCYTES 0.05 x10^3/uL (0.0-0.031); BASOPHILS # 0.06 x10^3/uL (0.01-0.08); EOSINOPHIL % 7.7 % (0.7-5.8); EOSINOPHILS # 0.38 x10^3/uL (0.04-0.36); HEMATOCRIT 27.7 % (34.1-44.9); HEMOGLOBIN 8.8 g/dL (11.2-15.7); MCHC 31.8 g/dl (32.2-35.5); MEAN CELL VOLUME 87.4 fl (79.4-94.8); MONOCYTE # 0.51 x10^3/uL (0.24-0.86); MONOCYTE % 10.3 % (4.7-12.5); RDW 13.3 % (12.3-16.6)
[2024-06-06] MEDS: PIPERACILLIN/TAZOB 3.375 GM 50 ML IVPB SCH (10:44)
[2024-06-06 10:49] LABS: POTASSIUM 4.2 mmol/L (3.5-5.1)
[2024-06-06] MEDS: levETIRAcetam 250 MG TABLET PO SCH (11:00)
[2024-06-06 11:34] LABS: ALBUMIN 2.6 g/dl (3.4-5.0); BLOOD UREA NITROGEN 3.8 mg/dL (7-18); MAGNESIUM 1.7 mg/dL (1.8-2.4)
[2024-06-06 11:37] LABS: CREATININE 0.5 mg/dL (0.55-1.3); PHOSPHOROUS 4.8 mg/dL (2.5-4.9)
[2024-06-06 11:38] LABS: BILIRUBIN,TOTAL 0.2 mg/dL (0.2-1); TOT PROT 6.6 g/dl (6.4-8.2)
[2024-06-06] MEDS: TIMOLOL 0.5% OPHTHALMIC SOL 5 ML BOTTLE OD SCH (14:28)
[2024-06-06] MEDS: BRIMONIDINE TARTRATE 0.2% OPHTHALMIC 5 ML BOTTLE OD SCH (14:28)
[2024-06-06 18:20] LABS: MEAN PLT VOLUME 9.5 fl (9.4-12.3); PLATELET COUNT 652 x10^3/uL (182-369)
[2024-06-06] MEDS: SODIUM CHLORIDE 1,000 ML IV STA (20:20)
[2024-06-06] MEDS: MAGNESIUM OXIDE 400 MG TABLET (FP) PO SCH (20:28)
[2024-06-06] MEDS: SODIUM CHLORIDE 500 ML IV STA (21:11)
[2024-06-06] MEDS: VANCOMYCIN/WATER FOR INJ (PEG) 1,000 MG/200 ML BAG IVPB SCH (21:19)
[2024-06-06 23:43] LABS: EPI CELLS 4 /uL (0-25.1); HYALINE CASTS 1 /uL (0-3.1); PH,URINE 7.5 (5.0-8.0); URINE APPEARANCE CLEAR; URINE BACTERIA 4 /uL (0-1359); URINE BILIRUBIN NEGATIVE (NEGATIVE); URINE COLOR YELLOW; URINE GLUCOSE (UA) NEGATIVE (NEGATIVE); URINE KETONE NEGATIVE (NEGATIVE); URINE LEUK ESTERASE TRACE (NEGATIVE); URINE NITRITE NEGATIVE (NEGATIVE); URINE PROTEIN NEGATIVE (NEGATIVE); URINE RBC 85 /uL (0-23.9); URINE UROBILINOGEN 0.2 mg/dL (0.2-1.0); URINE WBC 38 /uL (0-25.8)
[2024-06-07] MEDS: ACETAMINOPHEN 325 MG TABLET (FP) PO ONE (08:58)
[2024-06-07 10:50] LABS: HEMATOCRIT 25.4 % (34.1-44.9); HEMOGLOBIN 8.1 g/dL (11.2-15.7); MCHC 31.9 g/dl (32.2-35.5); MEAN CELL VOLUME 87.9 fl (79.4-94.8); MEAN PLT VOLUME 9.8 fl (9.4-12.3); PLATELET COUNT 473 x10^3/uL (182-369); RDW 13.5 % (12.3-16.6)
[2024-06-07 11:11] LABS: CHLORIDE 107 mmol/L (98-107); POTASSIUM 3.8 mmol/L (3.5-5.1); SODIUM 141 mmol/L (136-145)
[2024-06-07 11:14] LABS: CALCIUM 8.4 mg/dL (8.5-10.1)
[2024-06-07 11:15] LABS: ALBUMIN 2.2 g/dl (3.4-5.0); ANION GAP 4 mmol/L (4-13); BLOOD UREA NITROGEN 2.8 mg/dL (7-18); CO2 29 mmol/L (21-32); GLUCOSE,RANDOM 79 mg/dL (74-106); MAGNESIUM 1.8 mg/dL (1.8-2.4)
[2024-06-07 11:18] LABS: CREATININE 0.5 mg/dL (0.55-1.3); SGOT/AST 22 U/L (15-37); SGPT/ALT 11 U/L (13-61)
[2024-06-07 11:19] LABS: BILIRUBIN,TOTAL 0.2 mg/dL (0.2-1); TOT PROT 5.7 g/dl (6.4-8.2)
[2024-06-07 11:21] LABS: ALK PHOS 70 U/L (45-117)
[2024-06-07] MEDS: PIPERACILLIN/TAZOB 3.375 GM 3.375 GM in DEXTROSE 5%-WATER - 50 ML IVPB SCH (14:49)
[2024-06-07] MEDS: VANCOMYCIN 1,000 MG in DEXTROSE 5%-WATER - 250 ML IVPB SCH (14:50)
[2024-06-07] MEDS: PIPERACILLIN/TAZOB 2.25 GM 2.25 GM in DEXTROSE 5%-WATER - 50 ML IVPB SCH (17:34)
[2024-06-07] MEDS ORDERED: IOHEXOL (OMNIPAQUE IV) 350 MG/ML - 100 ML BOTTLE PO ONE (18:00)
[2024-06-08] MEDS ORDERED: IOHEXOL (OMNIPAQUE IV) 350 MG/ML - 100 ML BOTTLE PO ONE (08:00)
[2024-06-08 08:07] LABS: HEMATOCRIT 26.9 % (34.1-44.9); HEMOGLOBIN 8.5 g/dL (11.2-15.7); MCHC 31.6 g/dl (32.2-35.5); MEAN CELL VOLUME 87.6 fl (79.4-94.8); MEAN PLT VOLUME 9.4 fl (9.4-12.3); PLATELET COUNT 572 x10^3/uL (182-369); RDW 13.5 % (12.3-16.6)
[2024-06-08] MEDS: IOHEXOL (OMNIPAQUE IV) 350 MG/ML - 100 ML BOTTLE PO SCH (09:00)
[2024-06-08] MEDS ORDERED: FENTANYL CITRATE/PF 50 MCG/ML VIAL ONE (11:34)
[2024-06-08 18:30] VITALS: BP 112/72; PULSE 81; RESP 20; TEMP 98.1
[2024-06-08 18:30] LABS: POTASSIUM 3.6 mmol/L (3.5-5.1)
[2024-06-08 18:32] LABS: BLOOD UREA NITROGEN 3.1 mg/dL (7-18); CALCIUM 9.2 mg/dL (8.5-10.1)
[2024-06-08 18:36] LABS: CREATININE 0.4 mg/dL (0.55-1.3)
== END 2024-06-08 20:54 | disposition home or self-care (01) ==
LOC: JER 17:42 → JERBED 06-06 01:54 → J7W 06-06 08:35
PROVIDERS: ADMIT Hospitalist; ATTEND Physician Assistant
PROC: 3E03329 Introduction of Other Anti-infective into Peripheral Vein, Percutaneous Approach (ICD-10-PCS; principal; 2024-06-06)
PROC: 3E0337Z Introduction of Electrolytic and Water Balance Substance into Peripheral Vein, Percutaneous Approach (ICD-10-PCS; 2024-06-06)
PROC: 3E033GC Introduction of Other Therapeutic Substance into Peripheral Vein, Percutaneous Approach (ICD-10-PCS; 2024-06-06)
DX: L02.211 Cutaneous abscess of abdominal wall (principal); T85.628A Displacement of other specified internal prosthetic devices, implants and grafts, initial encounter; X58.XXXA Exposure to other specified factors, initial encounter; G81.94 Hemiplegia, unspecified affecting left nondominant side; D64.9 Anemia, unspecified; G93.9 Disorder of brain, unspecified; K38.9 Disease of appendix, unspecified
CPT/HCPCS: 36415; 71045-TC-FY; 74176-TC; 74177-TC; 80048; 80053; 81003; 83605; 83735; 84100; 85025; 85027; 85610; 86140; 86850; 86900; 86901; 87086; 93005; 93010; 96361; 96365; 96366; 96367; 96368; 99285-25; G0378; Q9967

== ENCOUNTER 2024-11-22 15:52 | Inpatient (IN) | payer OTHER ==
[2024-11-22] MEDS ORDERED: levETIRAcetam 500 MG/5 ML INJECTION VIAL IVPB ONE ×2 (17:36→17:59)
[2024-11-22] MEDS: levETIRAcetam 500 MG/5 ML INJECTION VIAL IVPB ONE (18:00)
[2024-11-22 18:24] LABS: BG HCT 53.0 % (32.4-45.2); VENOUS BASE EXCESS 4.0 mmol/L (-2-2); VENOUS O2 SATURATION 95.3 % (70-80); VENOUS PCO2 44.7 mmHg (38-52); VENOUS PH 7.431 (7.310-7.410)
[2024-11-22 18:25] LABS: ABSOLUTE IMMATURE GRANULOCYTES 0.03 x10^3/uL (0.0-0.031); BASOPHILS # 0.05 x10^3/uL (0.01-0.08); EOSINOPHIL % 0.2 % (0.7-5.8); EOSINOPHILS # 0.02 x10^3/uL (0.04-0.36); MCHC 33.6 g/dl (32.2-35.5); MEAN CELL VOLUME 84.3 fl (79.4-94.8); MEAN PLT VOLUME 9.2 fl (9.4-12.3); MONOCYTE # 1.29 x10^3/uL (0.24-0.86); MONOCYTE % 11.2 % (4.7-12.5); RDW 14.4 % (12.3-16.6)
[2024-11-22 18:47] LABS: GLUCOSE,RANDOM 112.0 mg/dL (74-106); TOT PROT 7.9 g/dl (6.4-8.2)
[2024-11-22 18:48] LABS: CO2 25.0 mmol/L (21-32)
[2024-11-22 18:50] LABS: ALK PHOS 71.0 U/L (40-150)
[2024-11-22 18:52] LABS: CREATININE 0.81 mg/dL (0.55-1.3); SGOT/AST 50.0 U/L (5-34); SGPT/ALT 51.0 U/L (0-55)
[2024-11-22] MEDS: LACTATED RINGERS SOLUTION 1000 ML INFUS.BAG IV ONE ×2 (19:03→23:01)
[2024-11-22 19:15] LABS: HCV DIAGNOSTIC IN-HOUSE W/RFLX NON-REACTIVE (NONREACTIVE); HIV INTERPRETATION NEGATIVE (NEGATIVE)
[2024-11-22] MEDS ORDERED: ASPIRIN 325 MG TABLET ONE (21:11)
[2024-11-22] MEDS: ASPIRIN 325 MG TABLET PO ONE (21:14)
[2024-11-22] MEDS ORDERED: VANCOMYCIN 1 GRAM (PRE-DOCKED) 1,000 MG/250 ML BAG IVPB ONE (22:39)
[2024-11-22] MEDS ORDERED: PIPERACILLIN/TAZOB 4.5 GM 4.5 GM/100 ML BAG IVPB ONE (22:39)
[2024-11-22] MEDS: PIPERACILLIN/TAZOB 4.5 GM 4.5 GM in DEXTROSE 5%-WATER 100 ML IVPB ONE (22:49)
[2024-11-22] MEDS: VANCOMYCIN 1,000 MG in DEXTROSE 5%-WATER - 250 ML IVPB ONE (23:00)
[2024-11-23 00:02] LABS: EPI CELLS 13 /uL (0-25.1); HYALINE CASTS 6 /uL (0-3.1); URINE APPEARANCE CLOUDY; URINE BACTERIA 5 /uL (0-1359); URINE BILIRUBIN NEGATIVE (NEGATIVE); URINE COLOR DK YELLOW; URINE GLUCOSE (UA) NEGATIVE (NEGATIVE); URINE KETONE NEGATIVE (NEGATIVE); URINE LEUK ESTERASE TRACE (NEGATIVE); URINE NITRITE NEGATIVE (NEGATIVE); URINE PROTEIN 4+ (NEGATIVE); URINE UROBILINOGEN 1.0 mg/dL (0.2-1.0); URINE WBC 37 /uL (0-25.8)
[2024-11-23] MEDS ORDERED: ACETAMINOPHEN INJECTION 100 ML ONE (00:19)
[2024-11-23] MEDS: ACETAMINOPHEN 1000 MG/100 ML BAG IVPB ONE (00:20)
[2024-11-23 00:38] LABS: URINE RBC PRESENT /uL (0-23.9)
[2024-11-23] MEDS ORDERED: NOREPINEPHRINE BITARTRATE 4 MG/4 ML ML IV ONE (05:01)
[2024-11-23] MEDS: NOREPINEPHRINE BITARTRATE 4,000 MCG in DEXTROSE 5%-WATER - 496 ML IV SCH (05:10)
[2024-11-23] MEDS: LEVOTHYROXINE NA 100 MCG TABLET (FP) PO SCH (06:14)
[2024-11-23 07:04] LABS: GLUCOSE,RANDOM 103 mg/dL (74-106)
[2024-11-23 07:05] LABS: CO2 23 mmol/L (21-32)
[2024-11-23 07:09] LABS: ABSOLUTE IMMATURE GRANULOCYTES 0.04 x10^3/uL (0.0-0.031); BASOPHILS # 0.06 x10^3/uL (0.01-0.08); EOSINOPHIL % 0.2 % (0.7-5.8); EOSINOPHILS # 0.02 x10^3/uL (0.04-0.36); MCHC 32.8 g/dl (32.2-35.5); MEAN CELL VOLUME 86.8 fl (79.4-94.8); MEAN PLT VOLUME 9.6 fl (9.4-12.3); MONOCYTE # 1.05 x10^3/uL (0.24-0.86); MONOCYTE % 10.6 % (4.7-12.5); RDW 14.7 % (12.3-16.6)
[2024-11-23 07:10] LABS: CREATININE 0.87 mg/dL (0.55-1.3)
[2024-11-23] MEDS: PANTOPRAZOLE SODIUM 40 MG VIAL IVPUSH SCH (10:13)
[2024-11-23] MEDS: MAGNESIUM 2GM/50ML STERILE WATER IVPB IVPB ONE (10:13)
[2024-11-23] MEDS: LACTATED RINGERS SOLUTION 1,000 ML/1,000 ML INFUS.BAG IV SCH (10:15)
[2024-11-23] MEDS: ENOXAPARIN NA (PORCINE) 40 MG/0.4 ML DISP.SYRIN SQ SCH (10:15)
[2024-11-23] MEDS: CEFTRIAXONE 1 GM in DEXTROSE 5%-WATER - 50 ML IVPB SCH (10:15)
[2024-11-23] MEDS: ASPIRIN COATED 81 MG TABLET.EC PO SCH (10:21)
[2024-11-23] MEDS: MUPIROCIN 2% TOPICAL OINTMENT FOR DECOLONIZATION NS SCH (10:28)
[2024-11-23] MEDS: BRIMONIDINE TARTRATE 0.2% OPHTHALMIC 5 ML BOTTLE OS SCH (10:28)
[2024-11-23] MEDS: TIMOLOL 0.5% OPHTHALMIC SOL 5 ML BOTTLE OS SCH (10:28)
[2024-11-23] MEDS: levETIRAcetam 500 MG/5 ML INJECTION VIAL IVPB SCH (10:33)
[2024-11-23] MEDS: LACTATED RINGERS SOLUTION 1000 ML INFUS.BAG IV ONE (11:00)
[2024-11-23] MEDS ORDERED: LACTATED RINGERS SOLUTION 1000 ML INFUS.BAG IV ONE (16:06)
[2024-11-23] MEDS: SODIUM CHLORIDE 0.9% 500 ML INFUS.BAG IV ONE (16:26)
[2024-11-23 22:10] LABS: LACTIC ACID 2.3 mmol/L (0.4-2.0)
[2024-11-23] MEDS: MIRTAZAPINE 15 MG TABLET (FP) PO SCH (22:16)
[2024-11-23] MEDS: CHLORHEXIDINE GLUCONATE 4% CLEANSER FOR DECOLONIZATION TP SCH (22:17)
[2024-11-24 06:51] LABS: MCHC 32.5 g/dl (32.2-35.5); MEAN CELL VOLUME 87.6 fl (79.4-94.8); MEAN PLT VOLUME 9.7 fl (9.4-12.3); RDW 14.6 % (12.3-16.6)
[2024-11-24 07:24] LABS: GLUCOSE,RANDOM 96.0 mg/dL (74-106); TOT PROT 5.8 g/dl (6.4-8.2)
[2024-11-24 07:25] LABS: CO2 28.0 mmol/L (21-32)
[2024-11-24 07:27] LABS: ALK PHOS 49.0 U/L (40-150)
[2024-11-24 07:30] LABS: CREATININE 0.61 mg/dL (0.55-1.3); SGOT/AST 25.0 U/L (5-34); SGPT/ALT 25.0 U/L (0-55)
[2024-11-24] MEDS: POTASSIUM PHOSPHATE 30 MM in SODIUM CHLORIDE 250 ML IVPB ONE (09:39)
[2024-11-24] MEDS: MAGNESIUM OXIDE 400 MG TABLET (FP) PO ONE (09:40)
[2024-11-24] MEDS: POTASSIUM CHLORIDE ORAL LIQUID 20 MEQ/15 ML PO ONE (09:40)
[2024-11-25 07:13] LABS: MCHC 32.5 g/dl (32.2-35.5); MEAN CELL VOLUME 88.6 fl (79.4-94.8); MEAN PLT VOLUME 11.0 fl (9.4-12.3); RDW 14.9 % (12.3-16.6)
[2024-11-25 07:15] LABS: GLUCOSE,RANDOM 80.0 mg/dL (74-106); TOT PROT 7.1 g/dl (6.4-8.2)
[2024-11-25 07:16] LABS: CO2 27.0 mmol/L (21-32)
[2024-11-25 07:18] LABS: ALK PHOS 58.0 U/L (40-150)
[2024-11-25 07:20] LABS: SGOT/AST 29.0 U/L (5-34); SGPT/ALT 25.0 U/L (0-55)
[2024-11-25 07:21] LABS: CREATININE 0.57 mg/dL (0.55-1.3)
[2024-11-25] MEDS: MIDODRINE HCL 5 MG TABLET PO SCH ×2 (12:18→21:32)
[2024-11-26 06:40] LABS: MCHC 33.0 g/dl (32.2-35.5); MEAN CELL VOLUME 88.2 fl (79.4-94.8); MEAN PLT VOLUME 9.6 fl (9.4-12.3); RDW 14.7 % (12.3-16.6)
[2024-11-26 06:51] LABS: GLUCOSE,RANDOM 90.0 mg/dL (74-106)
[2024-11-26 06:52] LABS: TOT PROT 6.1 g/dl (6.4-8.2)
[2024-11-26 06:53] LABS: CO2 29.0 mmol/L (21-32)
[2024-11-26 06:54] LABS: ALK PHOS 47.0 U/L (40-150)
[2024-11-26 06:57] LABS: CREATININE 0.55 mg/dL (0.55-1.3); SGOT/AST 27.0 U/L (5-34); SGPT/ALT 25.0 U/L (0-55)
[2024-11-26] MEDS: SODIUM CHLORIDE 500 ML IV STA (09:43)
[2024-11-26] MEDS: TIMOLOL 0.5% OPHTHALMIC SOL 5 ML BOTTLE OU SCH (21:06)
[2024-11-26] MEDS: BRIMONIDINE TARTRATE 0.2% OPHTHALMIC 5 ML BOTTLE OU SCH (21:07)
[2024-11-26] MEDS: CEFUROXIME AXETIL 500 MG TABLET PO SCH (21:15)
[2024-11-26] MEDS: MIDODRINE HCL 5 MG TABLET PO SCH (21:16)
[2024-11-26] MEDS: levETIRAcetam 500 MG TABLET (FP) PO SCH (21:17)
[2024-11-27] MEDS: SODIUM CHLORIDE 250 ML IV STA ×2 (00:40→01:55)
[2024-11-27] MEDS: MIDODRINE HCL 5 MG TABLET PO ONE (01:54)
[2024-11-27] MEDS: MIDODRINE HCL 5 MG TABLET PO SCH ×2 (02:07→05:53)
[2024-11-27] MEDS ORDERED: ONDANSETRON 4 MG/2 ML VIAL ONE ×2 (04:33→08:56)
[2024-11-27] MEDS: ONDANSETRON 4 MG/2 ML VIAL IVPUSH ONE (04:39)
[2024-11-27 06:44] LABS: MCHC 32.3 g/dl (32.2-35.5); MEAN CELL VOLUME 89.7 fl (79.4-94.8); MEAN PLT VOLUME 9.8 fl (9.4-12.3); RDW 14.8 % (12.3-16.6)
[2024-11-27 06:51] LABS: INR 1.07 (0.83-1.09); PROTHROMBIN TIME (PATIENT) 11.8 SEC (9.7-13.0)
[2024-11-27 06:54] LABS: ACTIVATED PTT 33.7 SECONDS (25.2-36.5)
[2024-11-27 07:05] LABS: TOT PROT 5.9 g/dl (6.4-8.2)
[2024-11-27 07:07] LABS: ALK PHOS 45 U/L (40-150)
[2024-11-27 07:09] LABS: GLUCOSE,RANDOM 85.0 mg/dL (74-106)
[2024-11-27 07:10] LABS: SGOT/AST 22 U/L (5-34); SGPT/ALT 19 U/L (0-55); TOT PROT 5.9 g/dl (6.4-8.2)
[2024-11-27 07:11] LABS: CO2 28.0 mmol/L (21-32)
[2024-11-27 07:12] LABS: ALK PHOS 45.0 U/L (40-150)
[2024-11-27 07:15] LABS: CREATININE 0.56 mg/dL (0.55-1.3); SGOT/AST 22.0 U/L (5-34); SGPT/ALT 19.0 U/L (0-55)
[2024-11-27] MEDS: ONDANSETRON 4 MG/2 ML VIAL IVPUSH PRN (09:07)
[2024-11-27 10:55] VITALS: BMI 22.6
[2024-11-27] MEDS: CEFUROXIME AXETIL 500 MG TABLET PO SCH (22:11)
[2024-11-27] MEDS: levETIRAcetam 500 MG TABLET (FP) PO SCH (22:11)
[2024-11-27] MEDS: MIRTAZAPINE 15 MG TABLET (FP) PO SCH (22:11)
[2024-11-28] MEDS: LEVOTHYROXINE NA 100 MCG TABLET (FP) PO SCH (06:00)
[2024-11-28 06:17] VITALS: TEMP 97.9
[2024-11-28 09:00] LABS: ABSOLUTE IMMATURE GRANULOCYTES 0.02 x10^3/uL (0.0-0.031); BASOPHILS # 0.05 x10^3/uL (0.01-0.08); EOSINOPHIL % 2.9 % (0.7-5.8); EOSINOPHILS # 0.15 x10^3/uL (0.04-0.36); MCHC 32.4 g/dl (32.2-35.5); MEAN CELL VOLUME 89.2 fl (79.4-94.8); MEAN PLT VOLUME 9.7 fl (9.4-12.3); MONOCYTE # 0.41 x10^3/uL (0.24-0.86); MONOCYTE % 7.9 % (4.7-12.5); RDW 14.8 % (12.3-16.6)
[2024-11-28 09:35] LABS: GLUCOSE,RANDOM 74.0 mg/dL (74-106); TOT PROT 6.2 g/dl (6.4-8.2)
[2024-11-28 09:36] LABS: CO2 29.0 mmol/L (21-32)
[2024-11-28 09:38] LABS: ALK PHOS 50.0 U/L (40-150)
[2024-11-28 09:41] LABS: CREATININE 0.63 mg/dL (0.55-1.3); SGOT/AST 26.0 U/L (5-34); SGPT/ALT 23.0 U/L (0-55)
[2024-11-28] MEDS: ENOXAPARIN NA (PORCINE) 40 MG/0.4 ML DISP.SYRIN SQ SCH (10:31)
[2024-11-28] MEDS: ASPIRIN COATED 81 MG TABLET.EC PO SCH (10:31)
[2024-11-28 14:27] VITALS: BP 90/53; PULSE 68; RESP 15
[2024-11-29 16:42] LABS: YEAST NOT PRESENT (NEGATIVE)
== END 2024-11-28 15:35 | disposition home health service (06) | DRG 720 ==
LOC: JER 15:52 → JERBED 22:17 → JICU 11-23 03:24 → J5S 11-27 11:39
PROVIDERS: ADMIT Internal Medicine Pulmonary Disease; ATTEND Nurse Practitioner Acute Care
DX: A41.9 Sepsis, unspecified organism (principal); I21.A1 Myocardial infarction type 2; R65.21 Severe sepsis with septic shock; G81.94 Hemiplegia, unspecified affecting left nondominant side; E83.42 Hypomagnesemia; L89.022 Pressure ulcer of left elbow, stage 2; I42.8 Other cardiomyopathies; N39.0 Urinary tract infection, site not specified; G40.909 Epilepsy, unspecified, not intractable, without status epilepticus
CPT/HCPCS: 36415; 70450-TC; 70551-TC; 71045-TC-FY; 71250-TC; 74177-TC; 80048; 80053; 80076; 80177; 81003; 82550; 82607; 82803; 83605; 83735; 84100; 84436; 84443; 84484; 85025; 85027; 85610; 85651; 85730; 86140; 86803; 87040; 87086; 87389; 87637-QW; 93005; 93010; 93306-TC; 95816; 97116-GP; 97162-GP; 99291